=== PATIENT | male | born 1940 | race Hispanic/Latino ===

== ENCOUNTER 2017-07-04 12:53 | Outpatient (CLI) | payer BC, MEDICARE ==
--- NOTE | 2017-07-04 13:50 | XRay Report ---
CHEST XRAY, 2 VIEWS: History: Acute bronchitis. Findings: There is mild diffuse interstitial coarsening. The lungs are hyperexpanded but clear. No infiltrate, pleural fluid or pneumothorax is detected. The cardiac silhouette and pulmonary vasculature are within normal limits for technique. The bony thorax is unremarkable. No significant change since 03/26/15. IMPRESSION: Changes consistent with COPD. No acute cardiopulmonary process.
== END 2017-07-04 12:54 | disposition home or self-care (01) ==
LOC: XRAY 12:53
PROVIDERS: ATTEND Internal Medicine
DX: J20.9 Acute bronchitis, unspecified (principal)
CPT/HCPCS: 71046

== ENCOUNTER 2018-10-03 08:30 | Outpatient (CLI) | payer BC | END 2018-10-03 08:31 | disposition home or self-care (01) | LOC: LAB 08:30 | PROVIDERS: ATTEND Internal Medicine | DX: E11.9 Type 2 diabetes mellitus without complications (principal); J45.909 Unspecified asthma, uncomplicated; K21.9 Gastro-esophageal reflux disease without esophagitis | CPT/HCPCS: 36415; 83036 ==

== ENCOUNTER 2019-01-16 08:28 | Outpatient (CLI) | payer BC ==
[2019-01-16 10:03] LABS: Alanine Aminotransferase 18 units/L (7-56); Albumin 4.5 g/dL (3.9-5); BUN/Creatinine Ratio 38; Blood Urea Nitrogen 19 mg/dL (9-20); Calcium 9.3 mg/dL (8.4-10.2); HDL Cholesterol 35 mg/dL (40-59); Hemolysis Index 6; LDL Cholesterol,Direct 127 mg/dL (50-130)
== END 2019-01-16 08:29 | disposition home or self-care (01) ==
LOC: LAB 08:28
PROVIDERS: ATTEND Internal Medicine
DX: E11.9 Type 2 diabetes mellitus without complications (principal); E78.2 Mixed hyperlipidemia; K21.9 Gastro-esophageal reflux disease without esophagitis; Z90.49 Acquired absence of other specified parts of digestive tract
CPT/HCPCS: 36415; 80053; 80061; 82306; 83036; 84153

== ENCOUNTER 2019-05-28 08:59 | Outpatient (CLI) | payer BC ==
[2019-05-28 12:33] LABS: Chol/HDL Ratio 4.79 %
== END 2019-05-28 09:00 | disposition home or self-care (01) ==
LOC: LAB 08:59
PROVIDERS: ATTEND Internal Medicine
DX: E11.9 Type 2 diabetes mellitus without complications (principal); E78.2 Mixed hyperlipidemia
CPT/HCPCS: 36415; 80061; 83036

== ENCOUNTER 2021-09-21 09:30 | Outpatient (CLI) | payer BC | END 2021-09-21 09:31 | disposition home or self-care (01) | LOC: LABHHL 09:30 | PROVIDERS: ATTEND Internal Medicine | DX: E11.9 Type 2 diabetes mellitus without complications (principal); E78.2 Mixed hyperlipidemia | CPT/HCPCS: 36415; 80061; 83036 ==